=== PATIENT | male | born 1945 | race Hispanic/Latino ===

== ENCOUNTER 2021-12-26 14:56 | Outpatient (RCR) | payer MEDICARE | END 2021-12-27 | LOC: PT 14:56 | PROVIDERS: ATTEND Specialist | DX: M75.42 Impingement syndrome of left shoulder (principal); M75.02 Adhesive capsulitis of left shoulder ==

== ENCOUNTER 2022-01-25 13:58 | Outpatient (RCR) | payer MEDICARE | END 2022-01-26 | LOC: PT 13:58 | PROVIDERS: ATTEND Specialist | DX: M75.42 Impingement syndrome of left shoulder (principal); M75.02 Adhesive capsulitis of left shoulder | CPT/HCPCS: 97139 ==

== ENCOUNTER 2022-02-06 12:52 | Outpatient (RCR) | payer MEDICARE | END 2022-02-26 | LOC: OT 12:52 | PROVIDERS: ATTEND Specialist | DX: M75.42 Impingement syndrome of left shoulder (principal); M75.02 Adhesive capsulitis of left shoulder | CPT/HCPCS: 97139 ==